=== PATIENT | male | born 1995 | race Hispanic/Latino ===

== ENCOUNTER 2020-08-17 03:48 | Emergency (ER) | payer OTHER ==
[~2020-08-17] VITALS: Ht 175.3 cm; Wt 67.3 kg
[2020-08-17 03:49] VITALS: BP 151/89
[2020-08-17] MEDS ORDERED: FLUORESCEIN OPHTH 1 MG STRIP OU ONE (06:30)
[2020-08-17] MEDS ORDERED: PROPARACAINE 0.5% OPHTH SOL 15ML OU ONE (06:30)
== END 2020-08-17 07:36 | disposition home or self-care (01) ==
LOC: M ED 03:48
DX: H57.13 Ocular pain, bilateral (principal); T65.91XA Toxic effect of unspecified substance, accidental (unintentional), initial encounter

== ENCOUNTER 2021-03-05 04:16 | Emergency (ER) | payer OTHER ==
[~2021-03-05] VITALS: Ht 175.3 cm; Wt 67.3 kg
[~2021-03-05 04:16] MED LIST: ACET500T15 PO; NAPR-837 PO; OMEP40CA4 PO
[2021-03-05 07:03] LABS: BASO % 0.4 % (0.0-1.0); EOS # 0.1 10^3/uL (0.0-0.5); HEMATOCRIT 43.3 % (42.0-52.0); HEMOGLOBIN 14.6 g/dl (13.5-17.5); LYMPH # 2.7 10^3/uL (1.5-5.0); LYMPH % 39.2 % (24.0-44.0); MEAN CORPUSCULAR HEMOGLOBIN 29.8 pg (27.0-33.0); MEAN CORPUSCULAR HGB CONC 33.7 g/dl (32.0-36.5); MEAN CORPUSCULAR VOLUME 88.4 fl (80.0-96.0); MONO # 0.5 10^3/uL (0.0-0.8); MONO % 7.5 % (2.0-8.0); NEUTROPHILS # 3.6 10^3/uL (1.5-8.5); NEUTROPHILS % 51.5 % (36.0-66.0); PLATELET COUNT, AUTOMATED 377 10^3/uL (150-450)
[2021-03-05 07:31] LABS: ALBUMIN 4.1 GM/DL (3.2-5.2); ALT/SGPT 15 U/L (12-78); BILIRUBIN,TOTAL 0.4 MG/DL (0.2-1.0); BLOOD UREA NITROGEN 9 MG/DL (7-18); CALCIUM LEVEL 9.2 MG/DL (8.5-10.1); CARBON DIOXIDE LEVEL 28 MEQ/L (21-32); CHLORIDE LEVEL 107 MEQ/L (98-107); CREATININE FOR GFR 0.81 MG/DL (0.70-1.30); GLOMERULAR FILTRATION RATE > 60.0 (>60); GLUCOSE, FASTING 88 MG/DL (70-100); POTASSIUM SERUM 4.1 MEQ/L (3.5-5.1); SODIUM LEVEL 141 MEQ/L (136-145); TOTAL PROTEIN 7.8 GM/DL (6.4-8.2)
--- NOTE | 2021-03-05 08:05 | REP ---
INDICATION: hemoptysis COMPARISON: 01/04/2021 TECHNIQUE: PA and lateral. FINDINGS: The mediastinum and cardiac silhouette are normal. The lung osullivan are clear and without acute consolidation, effusion, or pneumothorax. The skeletal structures are intact and normal. IMPRESSION: No acute cardiopulmonary process. <Electronically signed by Kaz Mitchell > 03/05/21 0801
[2021-03-05 08:37] LABS: RSV AMPLIFICATION NEGATIVE (NEGATIVE)
[2021-03-05] MEDS ORDERED: ISOVUE-370 76% 100ML VIAL As Ordered ONE (08:55)
--- NOTE | 2021-03-05 09:19 | REP ---
INDICATION: hemoptysis, elevated d dimer COMPARISON: None. TECHNIQUE: Axial contrast enhanced images from the thoracic inlet to the upper abdomen using pulmonary embolus technique with multiplanar re-formations. 75 ml Isovue 370 intravenous contrast material administered without complication. This CT examination was performed using the following dose reduction techniques: Automated exposure control, adjustment of mA and/or kv according to the patient's size, and use of iterative reconstruction technique. FINDINGS: Satisfactory enhancement of the pulmonary vasculature is achieved and no filling defects are identified to suggest pulmonary embolus. Further evaluation of the mediastinum demonstrates normal thoracic aorta, heart and pericardium. The bilateral lung osullivan are well aerated and clear without consolidation pleural effusion or pneumothorax. Tracheobronchial tree is patent. No nodule or mass lesion is identified. No adenopathy noted. Surrounding musculoskeletal structures intact IMPRESSION: No evidence for pulmonary embolus. No acute mediastinal or pleural parenchymal process. <Electronically signed by Kaz Mitchell > 03/05/21 0915
--- NOTE | 2021-03-05 09:21 | REP ---
INDICATION: right flank pain, dysuria r/o stone COMPARISON: None TECHNIQUE: Axial noncontrast images from the lung bases to the pubic symphysis with coronal and sagittal reformations. This CT examination was performed using the following dose reduction techniques: Automated exposure control, adjustment of mA and/or kv according to the patient's size, and use of iterative reconstruction technique. FINDINGS: Lung bases are clear. Visualized heart and pericardium normal. Liver, spleen, pancreas, gallbladder, bilateral adrenal glands and kidneys are normal. The enteric system is unremarkable and without obstruction or acute inflammatory process. Normal terminal ileum and appendix identified in the right lower quadrant. Pelvis demonstrates normal bladder and age-appropriate prostate/seminal vesicles. There is a tiny 2 mm calcification in the deep right hemipelvis which likely represents phlebolith considering there is no evidence for renal or ureteral for findings to suggest obstruction or nephropathy. No ascites. No free air. No adenopathy. No focal inflammatory stranding. Abdominal aorta without aneurysm. Musculoskeletal structures are intact and without acute osseous abnormality. IMPRESSION: No acute abdominopelvic pathology appreciated. Tiny 2 mm calcification in the deep right hemipelvis likely phlebolith. There is no associated acute renal or ureteral findings based on CT. Clinical correlation may be warranted. <Electronically signed by Kaz Mitchell > 03/05/21 0918
[2021-03-05 12:57] LABS: GC DNA AMPLIFICATION NEGATIVE (NEGATIVE)
[2021-03-05 12:59] VITALS: BP 127/63
== END 2021-03-05 13:02 | disposition home or self-care (01) ==
LOC: M ED 04:16
DX: R50.9 Fever, unspecified (principal); R07.89 Other chest pain; R51.9 Headache, unspecified; U07.1 COVID-19; R30.0 Dysuria; S39.011A Strain of muscle, fascia and tendon of abdomen, initial encounter; X58.XXXA Exposure to other specified factors, initial encounter; Y92.89 Other specified places as the place of occurrence of the external cause; Z77.098 Contact with and (suspected) exposure to other hazardous, chiefly nonmedicinal, chemicals
CPT/HCPCS: 36415; 71046; 71275; 74176; 80053; 81001; 85025; 85379; 87631; 87661; 99284; Q9967

== ENCOUNTER 2021-03-12 14:07 | Emergency (ER) | payer OTHER ==
[~2021-03-12] VITALS: Ht 175.3 cm; Wt 67.7 kg
[2021-03-12 17:00] LABS: BASO % 0.2 % (0.0-1.0); EOS # 0.1 10^3/uL (0.0-0.5); EOS % 1.2 % (0.0-3.0); HEMATOCRIT 41.8 % (42.0-52.0); HEMOGLOBIN 14.3 g/dl (13.5-17.5); LYMPH # 2.4 10^3/uL (1.5-5.0); LYMPH % 39.4 % (24.0-44.0); MEAN CORPUSCULAR HEMOGLOBIN 30.2 pg (27.0-33.0); MEAN CORPUSCULAR HGB CONC 34.2 g/dl (32.0-36.5); MEAN CORPUSCULAR VOLUME 88.2 fl (80.0-96.0); MONO # 0.4 10^3/uL (0.0-0.8); MONO % 7.2 % (2.0-8.0); NEUTROPHILS # 3.1 10^3/uL (1.5-8.5); NEUTROPHILS % 51.7 % (36.0-66.0); PLATELET COUNT, AUTOMATED 418 10^3/uL (150-450); RED BLOOD COUNT 4.74 10^6/uL (4.30-6.10)
[2021-03-12 17:38] LABS: CK-MB VALUE MASS < 1.0 NG/ML (<3.6); CPK CREATINE PHOSPHOKINASE 73 U/L (39-308); MB/CK RELATIVE INDEX 1.36 (< OR =4)
[2021-03-12 17:49] LABS: BLOOD UREA NITROGEN 12 MG/DL (7-18); GLOMERULAR FILTRATION RATE > 60.0 (>60); GLUCOSE, FASTING 105 MG/DL (70-100); POTASSIUM SERUM 4.2 MEQ/L (3.5-5.1); SODIUM LEVEL 142 MEQ/L (136-145)
[2021-03-12 17:50] LABS: ALBUMIN 3.9 GM/DL (3.2-5.2); ALT/SGPT 15 IU/L (0-32); BILIRUBIN,DIRECT 0.1 MG/DL (0.0-0.2); BILIRUBIN,TOTAL 0.4 MG/DL (0.2-1.0); CALCIUM LEVEL 8.8 MG/DL (8.5-10.1); CARBON DIOXIDE LEVEL 26 mmol/L (20-29); CHLORIDE LEVEL 108 MEQ/L (98-107); LIPASE 109 U/L (73-393)
[2021-03-12 19:40] VITALS: BP 115/62
== END 2021-03-12 19:42 | disposition home or self-care (01) ==
LOC: M ED 14:07
DX: R07.89 Other chest pain (principal); R53.83 Other fatigue; U07.1 COVID-19; Z77.098 Contact with and (suspected) exposure to other hazardous, chiefly nonmedicinal, chemicals

== ENCOUNTER 2021-06-11 19:51 | Emergency (ER) | payer OTHER ==
[~2021-06-11] VITALS: Ht 172.7 cm; Wt 71.6 kg
[2021-06-12] MEDS ORDERED: diazePAM 10MG/2ML SYRINGE (J3360 PER 5MG) IV ONE (03:20)
[2021-06-12] MEDS ORDERED: NS 1,000 ML IV ONE (03:20)
[2021-06-12 05:00] VITALS: BP 111/58
[2021-06-12] MEDS ORDERED: SOMA250T PO (05:02)
== END 2021-06-12 05:35 | disposition home or self-care (01) ==
LOC: M ED 19:51
DX: G44.209 Tension-type headache, unspecified, not intractable (principal); S29.019A Strain of muscle and tendon of unspecified wall of thorax, initial encounter; X50.9XXA Other and unspecified overexertion or strenuous movements or postures, initial encounter; Y92.89 Other specified places as the place of occurrence of the external cause; Y93.B3 Activity, free weights; Z87.891 Personal history of nicotine dependence
CPT/HCPCS: 96374; 99284; J3360

== ENCOUNTER 2021-06-17 00:48 | Emergency (ER) | payer OTHER ==
[~2021-06-17] VITALS: Ht 172.7 cm; Wt 69.1 kg
[~2021-06-17 00:48] MED LIST changes: +SOMA250T PO
[2021-06-17 04:00] VITALS: BP 117/66
== END 2021-06-17 04:33 | disposition home or self-care (01) ==
LOC: M ED 00:48
DX: R42 Dizziness and giddiness (principal); R07.89 Other chest pain; I45.19 Other right bundle-branch block

== ENCOUNTER 2021-11-08 01:38 | Emergency (ER) | payer OTHER ==
[~2021-11-08] VITALS: Ht 172.7 cm; Wt 70.8 kg
[2021-11-08] MEDS ORDERED: IBUP200T43 PO (01:49)
[2021-11-08] MEDS ORDERED: BIOF4GEL4 TOP (10:11)
[2021-11-08] MEDS ORDERED: ANEC4CRE3 TOP (10:11)
[2021-11-08 10:30] VITALS: BP 115/65
== END 2021-11-08 10:49 | disposition home or self-care (01) ==
LOC: M ED 01:38
DX: R22.2 Localized swelling, mass and lump, trunk (principal); M62.830 Muscle spasm of back